=== PATIENT | female | born 1945 | race Caucasian/White ===

== ENCOUNTER → 2016-05-11 | Outpatient (CLI) | payer MEDICARE, OTHER ==
[~2016-05-11] MED LIST: ASA CHILDREN'S81 MG PO; CALTRATE-600 D600 MG PO; CALTRATE-600 W600 MG PO; DAILY MULTIPLE1 EAC1 PO; EVISTA DPS60 MG PO; GLUCOSAMINE/CHO1 TAB PO; HCTZ12.5 MG PO; LIPITOR DPS40 MG PO; LIPITOR40 MG PO; MIRALAX PACKET17 GM PO; MOBIC15 MG PO; MOBIC7.5 MG PO; NORCO 5-325 TA1 EACH PO; NORVASC2.5 MG PO; NORVASC5 MG PO; OXY IR DPS5 MG PO; SENOKOT S1 TAB PO; THERA1 EACH PO; VISTARIL-DPS25 MG PO; VITAMIN D31000 UNIT PO; XARELTO10 MG PO; ZESTRIL DPS20 MG PO; ZESTRIL DPS40 MG PO
== END | disposition home or self-care (01) ==
LOC: PTH.S 08:54
DX: Z01.818 Encounter for other preprocedural examination (principal)

== ENCOUNTER 2016-05-26 09:03 | Inpatient (IN) | payer MEDICARE, OTHER ==
[~2016-05-26] VITALS: Ht 160 cm; Wt 93.3 kg
[~2016-05-26 09:03] MED LIST changes: -ASA CHILDREN'S81 MG PO; -CALTRATE-600 D600 MG PO; -LIPITOR40 MG PO; -MIRALAX PACKET17 GM PO; -MOBIC7.5 MG PO; -NORVASC2.5 MG PO; -OXY IR DPS5 MG PO; -SENOKOT S1 TAB PO; -THERA1 EACH PO; -VISTARIL-DPS25 MG PO; -VITAMIN D31000 UNIT PO; -XARELTO10 MG PO; -ZESTRIL DPS20 MG PO
--- NOTE | 2016-05-26 15:20 | HP ---
ADMIT: 05/26/2016 RM/LOC: W.05 [facility] MR#: [id number] [address] [address] YARY PECK Lionel [address] [place] [address] Pre-OP History and Physical SEX: F AGE: 71 : 1945 Corrected: 05/26/2016 1149 djs DATE OF SERVICE: CHIEF COMPLAINT: Left knee pain. HISTORY OF PRESENT ILLNESS: The patient is a 71-year-old, white female with left knee DJD. She has failed nonoperative treatment. She desires total knee arthroplasty. PAST MEDICAL HISTORY: Significant for osteoarthritis, hypertension, appendectomy, total shoulder, hysterectomy, knee arthroscopy, carpal tunnel release, and rotator cuff repair. MEDICATIONS: 1. Meloxicam. 2. Hydrocodone. 3. Calcium. 4. Vitamin D3. 5. Multivitamin. 6. Atorvastatin. 7. Hydrochlorothiazide. 8. Lisinopril. 9. Raloxifene. 10.Amlodipine. ALLERGIES: CHLORHEXIDINE GLUCONATE. SOCIAL HISTORY: The patient does not smoke or regularly drink alcohol. PHYSICAL EXAMINATION: HEENT: Normocephalic and atraumatic. CV: Regular rate and rhythm. LUNGS: Benign. ABDOMEN: Benign. NEUROLOGIC: Awake and oriented x3. MUSCULOSKELETAL: Shows tenderness over the medial joint line of the patellofemoral joint. The patient is short a couple degrees of full extension, flexes 110 degrees. Tender over the medial joint line. No ligamentous laxity. DIAGNOSTIC DATA: X-rays show left knee DJD bone on bone. ADMIT: 05/26/2016 RM/LOC: W.05 [facility] MR#: [id number] [address] [address] YARY PECK [address] [place] [address] Pre-OP History and Physical SEX: F AGE: 71 : 1945 ASSESSMENT AND PLAN: Left knee degenerative joint disease. At this point in time, we will plan left total knee arthroplasty. The patient has had a right total knee arthroplasty and done well from this. She understands the risks and benefits of surgical intervention which include, but not limited to infection, DVT, arthrofibrosis, neurovascular injury, early loosening, , etc., and desires to proceed. She will see her medical doctor for preoperative medical clearance and to follow her postoperatively in the hospital for anticoagulation and any medical issues that may arise. Please refer to that H and P for any in-depth medical issues or medications changes. Jesse Barajas MD/ [facility] JOB #: [id number] CC: Jesse Barajas, Attending Physician George Tinoco, Family Physician Corrected: 05/26/2016 1149 djs
[2016-05-30] MEDS ORDERED: ASA CHILDREN'S81 MG PO (19:36)
[2016-05-30] MEDS ORDERED: HCTZ12.5 MG PO (19:36)
[2016-05-30] MEDS ORDERED: EVISTA DPS60 MG PO (19:36)
[2016-05-30] MEDS ORDERED: CALTRATE-600 D600 MG PO (19:36)
[2016-05-30] MEDS ORDERED: LIPITOR40 MG PO (19:36)
[2016-05-30] MEDS ORDERED: MIRALAX PACKET17 GM PO (19:36)
[2016-05-30] MEDS ORDERED: MOBIC7.5 MG PO (19:37)
[2016-05-30] MEDS ORDERED: SENOKOT S1 TAB PO (19:37)
[2016-05-30] MEDS ORDERED: NORVASC2.5 MG PO (19:37)
[2016-05-30] MEDS ORDERED: ZESTRIL DPS20 MG PO (19:38)
[2016-05-30] MEDS ORDERED: XARELTO10 MG PO (19:38)
[2016-05-30] MEDS ORDERED: VITAMIN D31000 UNIT PO (19:38)
[2016-05-30] MEDS ORDERED: THERA1 EACH PO (19:38)
[2016-05-30] MEDS ORDERED: OXY IR DPS5 MG PO (19:39)
[2016-05-30] MEDS ORDERED: VISTARIL-DPS25 MG PO (19:39)
--- NOTE | 2016-06-02 15:54 | OR ---
ADMIT: 05/26/2016 RM/LOC: 504 [facility] MR#: [id number] [address] [address] YARY PECK [address] [place] [address] Operative/Delivery Room Report SEX: F AGE: 71 : 1945 SURGERY DATE: 05/26/2016 SURGEON: Jesse Barajas MD PREOPERATIVE DIAGNOSIS: Left knee degenerative joint disease. POSTOPERATIVE DIAGNOSIS: Left knee degenerative joint disease. PROCEDURE PERFORMED: Left total knee arthroplasty with Josef and Josef system size 3 posterior stabilized femoral component, size 2.5 tibial tray, 12.5 mm tibial insert, size 38 patellar button. WORK TICKET DISTRIBUTOR: Anthony Cardoso PA-C. ANESTHESIA: Spinal. ESTIMATED BLOOD LOSS: Minimal. FLUIDS: Per anesthetic record. COMPLICATIONS: No complications. DRAINS: No drains. TOURNIQUET TIME: 58 minutes. CONDITION ON DISCHARGE: The patient returned to the recovery room in fair condition. DRAINS: She had [address] at the end of the procedure. INDICATION: The patient had been having left knee pain refractory to nonoperative treatment. She desired total knee arthroplasty. She has had one on the right and done very well from this. She understands the risks and benefits of the procedure and desires to proceed. DESCRIPTION OF PROCEDURE: The patient was taken to the OR, transferred to the OR table, laid in the supine position. Spinal placed. Well-padded tourniquet applied left lower extremity. The left lower extremity was prepped and draped in the usual sterile fashion. It was exsanguinated and tourniquet inflated to 350 mmHg. An anterior incision made starting over the medial aspect of the tibial tubercle carried proximal to the patella and through the skin and subcutaneous tissue with a skin knife. Medial arthrotomy then performed with #10 blade. Patella everted, knee flexed. The ACL, PCL, medial and lateral menisci excised. Step drill was then used to open the intramedullary canal of the femur. I placed an IM alignment guide with the distal femoral cutting block down the intramedullary canal of the femur set at 11 mm of resection, 5 degrees of valgus cut and pinned it to the anterior aspect of the distal femur. I removed the IM alignment guide and cut the distal femur using an ADMIT: 05/26/2016 RM/LOC: 504 [facility] MR#: [id number] [address] [address] YARY PECK [address] [place] [address] Operative/Delivery Room Report SEX: F AGE: 71 : 1945 oscillating saw. I then removed this cutting block, sized the femur to 3. I placed a size 3 four-in-one cutting block in the distal aspect of the femur in 3 degrees of external rotation, made the 4 appropriate cuts using the oscillating saw. I then removed this cutting block, placed the box cutting jig in the distal aspect of the femur. I cut the box out of the distal femur using a reciprocating saw. Proximal tibia was then cut perpendicular to the long axis of the tibial shaft using a proximal tibial cutting guide and oscillating saw. Posterior aspect of the patella was cut flush with the posterior aspects of the quadriceps and patellar tendons using the patella cutting saw. This was sized at a 38 and step drilled with a guide. Trial components were then placed. Size 2.5 tibial tray with a 12.5 mm insert gave excellent range of motion, stability, and patellar tracking. Thus, the femoral component was step drilled. Tibial component was step drilled and cruciate punched. Trial components were then removed. Knee was thoroughly injected throughout with Exparel like compound. I then thoroughly irrigated this out area and dried it. I then cemented the tibia, patellar, and femoral components into place removing all extraneous cement as it dried. I then impacted a 12.5 mm insert into the tibial tray and ran the knee through a range of motion. It had excellent range of motion, stability, and patella tracking. Thus, one deep drain was then placed. Medial arthrotomy closed using #1 Vicryl, subcutaneous tissue closed using 2-0 Vicryl, skin closed using lola. Wounds were washed, dried, dressed with sterile Adaptic, 4x4s, ABD, Webril, and Steve wrap. An ice pad was placed on top of the Steve wrap. Drapes removed. Tourniquet let down. The patient transferred back to recovery room in fair condition. Jesse Barajas MD/ [facility] JOB #: [id number] CC: Jesse Barajas, Attending Physician George Tinoco, Family Physician
--- NOTE | 2016-06-05 13:58 | CO ---
ADMIT: 05/26/2016 RM/LOC: [facility] MR#: [id number] [address] [address] YARY PECK [address] [place] [address] Consultation Report SEX: F AGE: 71 : 1945 DATE OF CONSULTATION: 05/14/2016 ATTENDING PHYSICIAN: Jesse Barajas CONSULTING PHYSICIAN: George Tinoco MD CHIEF COMPLAINT: Severe left knee pain. CLINICAL HISTORY: The patient is a 71-year-old, white female, admitted by Dr. Barajas at this time for left total knee arthroplasty. The patient has a history of severe degenerative arthritis of both knees. She had a prior right total knee on 10/15/2015 and has had a very successful outcome. She is now 7 months postop from a right total knee. She has good mobility and no pain with her right knee. Left knee has been causing increasing pain with nocturnal pain as well as decreased mobility and decreased activity tolerance because of her ongoing left knee pain. She is admitted at this time for left total knee arthroplasty. PAST MEDICAL HISTORY: As noted, she was most recently admitted on 10/15/2015 for a right total knee. She was also hospitalized for previous right total shoulder arthroplasty in December 2014. She has had no other recent hospitalizations. Previous surgical procedures include the right total knee on 10/15/2015, a right total shoulder on 01/04/2015. She has had removal of a large lipoma from her back in 2012. She has had a past history of bilateral knee arthroscopy. She has also had left carpal tunnel surgery. She has a remote history of tonsillectomy as a child, appendectomy as a young adult, and a total abdominal hysterectomy with bilateral salpingo-oophorectomy in October of 2000. The patient has no prior difficulty with any type of anesthesia. CURRENT MEDICATIONS: Include the followin. Meloxicam 15 mg daily. 2. Norvasc 2.5 mg daily in the evening. 3. Hydrochlorothiazide 12.5 mg daily. 4. Lisinopril 20 mg daily. 5. Atorvastatin 40 mg q.a.m. 6. Evista 60 mg once daily. 7. Hydrocodone 5/325 one every 4 hours for her arthritic pain. 8. Vitamin D3, 1000 units daily. 9. Calcium 600 mg daily. 10.Multivitamin 1 daily. 11.Baby aspirin daily. ALLERGIES: SHE IS ALLERGIC TO CHLORHEXIDINE SKIN PREP. SHE ALSO HAS HAD PREVIOUS REACTION TO CELEBREX. SOCIAL HISTORY: The patient is a . Her 4-5 years ago from complications related to a stroke. She currently lives alone. She is retired. She is a lifelong nonsmoker. She drinks on a very limited basis ADMIT: 05/26/2016 RM/LOC: [facility] MR#: [id number] [address] [place], [place] [address] [place] [address] Consultation Report SEX: F AGE: 71 : 1945 having an occasional glass of wine. She considers herself a light social drinker. She has no history of illicit drug use. FAMILY HISTORY: There is a strong history of cancer, heart disease, hypertension, hyperlipidemia, and diabetes in her family. She notes that one of her sisters has had breast cancer. Her father of lung cancer. Her mother from atherosclerotic coronary vascular disease. She is unaware of any other significant familial-related health problems. REVIEW OF SYSTEMS: CONSTITUTIONAL: No fever. No chills. No recent change in weight. No night sweats. She notes that she fatigues easily and complains of some chronic tiredness. HEENT: No new eye, ear, nose, or throat complaints. No upper respiratory congestion. No swallowing difficulties. No recent vision changes. No significant hearing loss. She does have some bilateral chronic tinnitus. PULMONARY: No shortness of breath. No cough. No chest pain. No prior history of pulmonary embolus. CARDIAC: No chest pain or palpitations. No known coronary artery disease. Multiple cardiac risk factors including hypertension, hyperlipidemia, obesity, and positive family history. GASTROINTESTINAL: No nausea. No vomiting. No diarrhea. No heartburn. No indigestion. No recent blood in the stools. No prior history of GI bleeds. GENITOURINARY: Does have some occasional urinary urgency. No dysuria. No flank pain. No history of kidney stones. MUSCULOSKELETAL: Generalized arthritic discomfort. She has had some residual chronic right shoulder pain and very limited mobility in her right shoulder following her previous right total shoulder arthroplasty. She has had ongoing difficulty with bilateral knee pain, although right knee is doing well now that she is 7 months postop right total knee. NEUROLOGIC: No history of strokes, seizures, or TIA's. No focal symptoms. No history of syncope. PSYCHIATRIC: No history of depression or anxiety. INTEGUMENT: She denies any rashes or skin lesions that are not healing. PHYSICAL EXAMINATION: VITAL SIGNS: At this time, her temp is 96.8, pulse is 85 and regular, respirations 18, blood pressure 96/68, O2 saturation 96%, height is 5 feet 3 inches, weight 194 pounds. GENERAL: The patient is a 71-year-old female, who appears her stated age. She is in no acute distress. She is moderately obese. HEENT: Reveals her ears to be clear. Hearing is grossly intact. Nose and throat are noninflamed. Oropharynx is normal. NECK: Supple. Thyroid not enlarged. No neck vein distention. No neck masses. No carotid bruits. LUNGS: Noted to be clear. Chest wall is nontender. She has no dullness to percussion. HEART: Has a regular rhythm. No murmurs. No lifts, thrills, or heaves. No evidence of failure. ABDOMEN: Obese, soft, nontender. Bowel sounds are normoactive. She has no ADMIT: 05/26/2016 RM/LOC: [facility] MR#: [id number] 26[address] [facility] [address] [place] [address] YARY PECK [address] [place] [address] Consultation Report SEX: F AGE: 71 : 1945 masses or organomegaly. Does have a scar in her lower abdomen from her previous hysterectomy and previous appendectomy. EXTREMITIES: Today are noted to have 1+ pedal and ankle edema, trace of pretibial edema. She has a well-healed scar over her right knee from previous right total knee. Mobility in that knee is good. She has advanced changes of degenerative arthritis of the left knee with a slight left knee joint effusion. NEUROLOGIC: I see no focal deficit. She is well preserved cognitively. Her balance and gait are normal. Cranial nerves II through XII are grossly intact. MENTAL STATUS EXAMINATION: She is pleasant, cooperative. Affect is appropriate. She is oriented x3. No significant depressive symptoms noted. LABORATORY DATA: Her preoperative laboratory work done at [place] revealed her hemoglobin to be 12.9. Renal function is mildly abnormal with a creatinine of 1.4. Potassium was 3.7. Blood sugar 83. Resting EKG shows normal sinus rhythm with no significant ST-T wave changes. ASSESSMENT AT THE TIME OF ADMISSION: 1. Advanced degenerative arthritis of the left knee. 2. Chronic left knee pain. 3. Status post right total knee. 4. Status post right total shoulder arthroplasty in December of 2014. 5. Generalized osteoarthritis. 6. Hypertension. 7. Hyperlipidemia. 8. Chronic gastroesophageal reflux disease. 9. Obesity. 10.History of topical sensitivity or allergy to the skin prep chlorhexidine gluconate. PLAN: The patient is to be admitted for left total knee on 05/26/2016. I see no medical contraindications to her planned orthopedic surgery. We will plan on following along and assisting with her medical management postoperatively. We will discuss DVT prophylaxis with Dr. Barajas. I would prefer Xarelto 10 mg daily, but we will discuss DVT prophylaxis with her orthopedic surgeon. George Tinoco MD/ [facility] JOB #: [id number] CC: Jesse Barajas, Attending Physician UNKNOWN, Family Physician
--- NOTE | 2016-06-16 15:27 | DS ---
ADMIT: 05/26/2016 RM/LOC: 504 [facility] MR#: [id number] [facility]#: [id number] 26[address] [facility] [address] [place], [place] [address] YARY PECK [address] [place] [address] General Discharge Summary SEX: F AGE: 71 : 1945 ADMISSION DATE: 05/26/2016 DISCHARGE DATE: 05/29/2016 REASON FOR ADMISSION: Elective left total knee arthroplasty after failing conservative care. PREOPERATIVE DIAGNOSIS: Left knee degenerative joint disease. POSTOPERATIVE DIAGNOSIS: Left knee degenerative joint disease. PROCEDURE PERFORMED: Left total knee arthroplasty. SURGEON: Jesse Barajas MD. WORKERS COMPENSATION EXAMINER: Anthony Cardoso PA-C. ANESTHESIA: Spinal. ESTIMATED BLOOD LOSS: Minimal. COMPLICATIONS: None. ACTIVE MEDICAL PROBLEMS: Significant for osteoarthritis, hypertension, appendectomy, total shoulder arthroplasty, hysterectomy, right total knee arthroplasty, carpal tunnel release, and rotator cuff repair. HOSPITAL COURSE: The patient was admitted on 05/26/2016, for elective left total knee arthroplasty done successfully without any complications by Dr. Jesse Barajas. The patient tolerated the procedure well. On postoperative day #1, she was doing well with pain control, but had increasing pain on postoperative day #2. She was then given Vistaril 50 mg to help with pain, nausea, itching, and restlessness. By postoperative day #3, her pain was doing much better and the Vistaril was decreased to 25 mg. She did suffer from some acute blood-loss anemia, her hemoglobin dropped to 10.3 on 05/28/2016, but she remained hemodynamically stable and did not require blood transfusion. By postoperative day #3, she was safe and doing well with physical therapy. She was stable and ready for discharge to a halfway facility. DISCHARGE MEDICATIONS: 1. Aspirin 81 mg everyday. 2. Caltrate 600 mg daily. 3. Evista 60 mg daily. 4. Hydrochlorothiazide 12.5 mg daily. 5. Lipitor 40 mg daily. 6. MiraLax 17 g daily. 7. Mobic 7.5 mg daily. 8. Norvasc 2.5 mg daily. 9. Senokot 2 tablets twice a day. ADMIT: 05/26/2016 RM/LOC: 504 [facility] MR#: [id number] [address] [address] YARY PECK [address] [place] [id number] General Discharge Summary SEX: F AGE: 71 : 1945 10.Vitamin D 1000 units daily. 11.Xarelto 10 mg every 24 hours for 35 days. 12.Zestril 20 mg everyday. 13.Oxycodone IR 5 mg one to three tablets every 2 hours as needed for pain. 14.Vistaril 25 mg every 6 hours as needed for pain, restlessness, nausea, and itching.. 15.Amlodipine 2.5 mg. 16.Lisinopril 20 mg. 17.Atorvastatin 40 mg every morning. 18.Duloxetine 60 mg at night. 19.Calcium 600 mg in the morning. DISCHARGE INSTRUCTIONS: The patient was discharged to halfway facility with plans for outpatient physical therapy per total knee arthroplasty protocol. Follow up in the Orthopedic office in 2 weeks for wound check, in 6 weeks with x-rays. Follow up with primary care as directed. SHELDON Arreola / Jesse Barajas MD / [facility] JOB #: [id number] CC: Jesse Barajas MD, Attending Physician George Tinoco MD, Family Physician
== END 2016-05-29 10:31 | DRG 470 ==
LOC: UNDOADMOB 10:00 → WOR 10:00 → PREOBSVTOIN 10:01 → 5MS 10:02 → WOR 10:02 → 5MS 16:02
PROVIDERS: ADMIT Orthopaedic Surgery
PROC: 0SRD0J9 Replacement of Left Knee Joint with Synthetic Substitute, Cemented, Open Approach (ICD-10-PCS; principal; 2016-05-26)
DX: M15.9 Polyosteoarthritis, unspecified (principal); D62 Acute posthemorrhagic anemia; I12.9 Hypertensive chronic kidney disease with stage 1 through stage 4 chronic kidney disease, or unspecified chronic kidney disease; E66.9 Obesity, unspecified; Z68.34 Body mass index [BMI] 34.0-34.9, adult; E78.5 Hyperlipidemia, unspecified; N18.2 Chronic kidney disease, stage 2 (mild); K21.9 Gastro-esophageal reflux disease without esophagitis; Z96.651 Presence of right artificial knee joint; Z96.611 Presence of right artificial shoulder joint; Z82.49 Family history of ischemic heart disease and other diseases of the circulatory system

== ENCOUNTER → 2016-06-09 | Outpatient (CLI) | payer OTHER, MEDICARE ==
[~2016-06-09] MED LIST changes: +ASA CHILDREN'S81 MG PO; +CALTRATE-600 D600 MG PO; +LIPITOR40 MG PO; +MIRALAX PACKET17 GM PO; +MOBIC7.5 MG PO; +NORVASC2.5 MG PO; +OXY IR DPS5 MG PO; +SENOKOT S1 TAB PO; +THERA1 EACH PO; +VISTARIL-DPS25 MG PO; +VITAMIN D31000 UNIT PO; +XARELTO10 MG PO; +ZESTRIL DPS20 MG PO
== END | disposition home or self-care (01) ==
LOC: RAD.S 14:06
DX: M79.605 Pain in left leg (principal); M79.89 Other specified soft tissue disorders; I82.402 Acute embolism and thrombosis of unspecified deep veins of left lower extremity